=== PATIENT | male | born 1950 | race Two or more races ===

== ENCOUNTER 2018-03-11 20:08 | Emergency (ER) | payer MEDICARE, MEDICAID ==
[~2018-03-11] VITALS: Ht 170.2 cm; Wt 82.6 kg
[2018-03-11] MEDS ORDERED: Acetaminophen 500mg (ES) tab ORAL ONE (20:30)
[2018-03-11] MEDS ORDERED: NORCO 5-325 TA1 EACH ORAL (21:57)
[2018-03-11] MEDS ORDERED: AUGMENTIN 875-1 EAC1 ORAL (21:57)
--- NOTE | 2018-03-11 22:18 | Emergency Room Report ---
History of Present Illness General Chief Complaint: Lower Extremity Injury Source: Patient, EMS Present Illness HPI Patient is a 67-year-old male who presented after increased the left foot pain. Patient reportedly had increased pain to the left foot after inverting his foot. He reports having increased pain with ambulation. He was brought in by EMS. Patient reports having prior history of a vascular repair to the left lower extremity. Patient had her history of diabetes. The patient was noted to have some evidence of the laceration between the fourth and fifth toe. He denies any current numbness or weakness. Allergies: Coded Allergies: No Known Allergies (Unverified , 03/11/18) Patient History Past Medical History: see triage record Reviewed Nursing Documentation: PMH: Agreed; PSxH: Agreed Nursing Documentation-PMH Hx Hypertension: Yes Hx Diabetes: Yes Review of Systems All Other Systems: negative except mentioned in HPI Physical Exam Vital Signs Date Time Temp Pulse Resp B/P (MAP) Pulse Ox O2 Delivery O2 Flow Rate FiO2 03/11/18 20:03 98.0 72 18 174/80 99 98.1 Sp02 EP Interpretation: reviewed, normal General Appearance: normal inspection, well appearing, no apparent distress, alert, GCS 15, Chronically Ill Head: atraumatic ENT: normal ENT inspection, hearing grossly normal, normal voice Neck: normal inspection, full range of motion, supple, no bony tend Respiratory: normal inspection, lungs clear, normal breath sounds, no respiratory distress, no retraction, no wheezing Cardiovascular #1: regular rate, rhythm, no edema Gastrointestinal: normal inspection, normal bowel sounds, non tender, soft, no guarding, no hernia Genitourinary: no CVA tenderness Musculoskeletal: back normal, normal range of motion, other - laceration to left foot 2cm between web space Neurologic: normal inspection, alert, responsive, speech normal Psychiatric: normal inspection, judgement/insight normal, mood/affect normal Skin: no rash, other - laceration to left foot Medical Decision Making Diagnostic Impression: Primary Impression: Foot fracture, left ER Course Patient presented for left foot pain. Differential diagnosis included was not limited to fracture, dislocation, sprain, vascular injury among others.Because of complexity of patient's case laboratory testing and imaging studies were ordered. The patient noted have good perfusion to his extremities. The patient was noted to have evidence of laceration. X-ray imaging of the left foot to views interpreted by me showed fracture of the the base of the fifth proximal phalanx as well as fracture of the fourth proximal phalanx shaft. The patient was discussed with Dr. Lele Armas for podiatry consult. Patient states that he has an up-to-date tetanus vaccine. The patient will follow-up with Dr. Armas for further management.The patient given prescription for Dola as well as Augmentin. Last Vital Signs Date Time Temp Pulse Resp B/P (MAP) Pulse Ox O2 Delivery O2 Flow Rate FiO2 03/11/18 20:29 98.0 03/11/18 20:03 72 18 174/80 99 Status: improved Disposition: HOME, SELF-CARE Condition: Stable Scripts Hydrocodone Bit/Acetaminophen 5-325* (NORCO 5-325*) 1 Each Tablet 1 TAB ORAL Q6H PRN for For Pain, #20 TAB 0 Refills Prov: Buster Meredith MD 03/11/18 Amoxicillin/Potassium Clav 875-125* (AUGMENTIN 875-125 TABLET*) 1 Each Tablet 1 TAB ORAL TWICE A DAY, #20 TAB Prov: Buster Meredith MD 03/11/18 Patient Instructions: Toe Fracture Buster Meredith MD Mar 11, 2018 22:18
[2018-03-11 22:37] VITALS: BP 169/80
--- NOTE | 2018-03-11 23:45 | Consultation ---
DATE OF CONSULTATION: 03/11/2018 SUBJECTIVE: This is a kind 67-year-old male, who states he was at the [facility] and he slipped while getting into the pool and he inverted his left foot and had open lac to the left fifth toe and fractured. He was then sent with paramedics to [facility] for workup. Radiograph shows there are 2 fractures to the left fourth and fifth digits. The patient states that he was in about 7/10 pain, but now with Tylenol, his pain is down to about 4/10. He is a controlled diabetic with blood sugars being typically in the 140 to 150s. Denies any peripheral neuropathy. Denies any previous ulcerations. Denies any loss of consciousness. PAST MEDICAL HISTORY: Diabetes mellitus and peripheral vascular disease. PAST SURGICAL HISTORY: Eye surgery and previous vascular surgery on the left lower extremity. ALLERGIES: No known drug allergies. OBJECTIVE: AAO x3. 2/4 DP and PT pulses are noted. There is hair growth noted bilaterally. Lacerations are clean and dry. Protective sensation is intact to the bilateral foot. Strength is 5/5 in bilateral foot. There is an open laceration longitudinally oriented 2 cm long from the left fourth webspace plantarly towards the plantar fat pad. There is no exposure of bone. No pus. The fourth digit is laterally translated at the level of the proximal phalanx base. There is no open wounds in this area. There is no surrounding ecchymosis. There is no surrounding erythema noted. The left fifth digit is slightly elevated at the proximal phalanx level, however, there is rectus in the frontal plane. The patient has pain to the left fourth and fifth digits and is guarding. No pain along the fourth and fifth metatarsals. RADIOGRAPHS: The patient has a transverse fracture of the fourth proximal phalanx base, left foot, as well as the oblique fracture of the proximal medial aspect of the left fifth proximal phalanx base into the fifth metatarsophalangeal joint. ASSESSMENT: 1. Open fracture of the left fifth digit. 2. fracture, transverse, left fourth digit proximal phalanx. 3. Peripheral vascular disease. 4. Diabetes mellitus with peripheral neuropathy. PLAN: I washed the left fifth digit laceration with Betadine and normal saline. I then applied some 4 mL of 1% lidocaine plain into the left fifth digit and fourth digits. I then closed the incision line with a 3-0 nylon in horizontal mattress fashion. I then applied Betadine over the sutures, Adaptic, 4 x 4, Kerlix, and an Devin bandage. The patient will be protected weightbearing in a surgical shoe with crutches. He will follow up to see me on Sunday in clinic. I will prepare for surgery. I discussed with the patient and he will likely require open reduction and internal fixation of the left fourth digit and possible percutaneous fixation of the left fifth digit. I discussed nonunion, malunion, and infection. We will recommend 10 days of oral antibiotics to the patient and we will make sure his tetanus status is up-to-date. Discussed to elevate the left foot on 2 pillows at all times. Pain medications per ER physician. Neel Armas M.D. DR: DEVEN JOB#: [id number] CC:
--- NOTE | 2018-03-12 11:56 | Diagnostic Imaging Report ---
Indication: Pain Technique: XRAY Foot 2v L Comparison: None Findings: There is fracture the base of the fifth proximal phalanx extending to the articular surface. Additionally there is a transverse fracture of the proximal shaft of the fourth proximal phalanx. No additional fracture identified. 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 There is mild degenerative change at the first metatarsal phalangeal joint with some subchondral sclerosis. Lisfranc alignment of the foot is preserved. Vascular calcifications. No radiopaque foreign body seen. IMPRESSION: Fractures of the fifth and fourth proximal phalanges as above. This corresponds with the preliminary interpretation of the treating ER clinician, as documented in the electronic medical record.
== END 2018-03-11 22:46 | disposition home or self-care (01) ==
LOC: EDBD 20:08 → EMR 20:36
DX: S92.512B Displaced fracture of proximal phalanx of left lesser toe(s), initial encounter for open fracture (principal); W01.0XXA Fall on same level from slipping, tripping and stumbling without subsequent striking against object, initial encounter; Y92.89 Other specified places as the place of occurrence of the external cause; E11.42 Type 2 diabetes mellitus with diabetic polyneuropathy; I10 Essential (primary) hypertension
CPT/HCPCS: 99284